=== PATIENT | male | born 1995 | race Caucasian/White ===

== ENCOUNTER 2023-01-27 11:44 | Emergency (ER) | payer OTHER ==
[~2023-01-27] VITALS: Ht 165.1 cm; Wt 81.6 kg
[2023-01-27 11:52] VITALS: BP 117/62
--- NOTE | 2023-01-27 14:00 | NUR ---
patient called no answer
--- NOTE | 2023-01-27 14:39 | NUR ---
PT CALLED FOR IN LOBBY. NO ANSWER
--- NOTE | 2023-01-27 15:00 | NUR ---
LWBS PER DR GILLILAND
--- NOTE | 2023-01-27 15:24 | NUR ---
1524 PT WAS CALLED FOR AGAIN. NO ANSWER
== END 2023-01-27 15:00 | disposition left against medical advice (07) ==
LOC: MED 11:44
DX: R53.1 Weakness (principal); R42 Dizziness and giddiness; Z53.21 Procedure and treatment not carried out due to patient leaving prior to being seen by health care provider
CPT/HCPCS: 99281

== ENCOUNTER 2023-02-24 13:02 | Emergency (ER) | payer OTHER ==
[~2023-02-24] VITALS: Ht 167.6 cm; Wt 81.6 kg
[2023-02-24 13:28] VITALS: BP 119/84; PULSE 86; RESP 18; TEMP 98; O2SAT 98
== END 2023-02-24 14:06 | disposition left against medical advice (07) ==
LOC: MED 13:02
DX: R07.89 Other chest pain (principal); R03.0 Elevated blood-pressure reading, without diagnosis of hypertension
CPT/HCPCS: 99281

== ENCOUNTER 2023-09-05 11:32 | Emergency (ER) | payer OTHER ==
[~2023-09-05] VITALS: Ht 167.6 cm; Wt 81.6 kg
[2023-09-05 11:45] VITALS: BP 118/75; PULSE 87; RESP 18; TEMP 98; O2SAT 98
[2023-09-05] MEDS ORDERED: cefTRIAXone 500 MG in LIDOCAINE MPF 1% 1 ML IM ONE (12:25)
[2023-09-05] MEDS ORDERED: AMOX500C25 PO ×2 (12:28→12:47)
[2023-09-05] MEDS ORDERED: IBUP-2213 PO ×2 (12:28→12:47)
[2023-09-05] MEDS ORDERED: cefTRIAXone 500 MG VIAL ONE (12:32)
[2023-09-05] MEDS ORDERED: LIDOCAINE MPF 1% 5 ML ONE (12:33)
== END 2023-09-05 12:48 | disposition home or self-care (01) ==
LOC: MED 11:32
DX: K08.89 Other specified disorders of teeth and supporting structures (principal); Z79.1 Long term (current) use of non-steroidal anti-inflammatories (NSAID); Z79.2 Long term (current) use of antibiotics
CPT/HCPCS: 96372; 99283; J0696; J2001

== ENCOUNTER 2023-09-11 16:32 | Emergency (ER) | payer OTHER ==
[~2023-09-11 16:32] MED LIST: AMOX500C25 PO; IBUP-2213 PO
== END 2023-09-11 17:18 | disposition left against medical advice (07) ==
LOC: MED 16:32
DX: K08.89 Other specified disorders of teeth and supporting structures (principal); Z53.21 Procedure and treatment not carried out due to patient leaving prior to being seen by health care provider

== ENCOUNTER 2023-09-24 17:07 | Emergency (ER) | payer OTHER ==
[~2023-09-24] VITALS: Ht 165.1 cm; Wt 83.9 kg
[2023-09-24 17:17] VITALS: BP 126/77; PULSE 82; RESP 16; TEMP 97.5; O2SAT 96
[2023-09-24] MEDS ORDERED: IBUP-2213 PO (17:33)
[2023-09-24] MEDS ORDERED: AMOX500C25 PO (17:33)
[2023-09-24] MEDS ORDERED: BENZ7GEL5 MM (17:33)
[2023-09-24 17:39] VITALS: BP 126/77; PULSE 82; RESP 16; TEMP 97.5; O2SAT 96
== END 2023-09-24 17:37 | disposition home or self-care (01) ==
LOC: MED 17:07
DX: K08.89 Other specified disorders of teeth and supporting structures (principal); Z79.899 Other long term (current) drug therapy
CPT/HCPCS: 99283

== ENCOUNTER 2023-10-06 13:22 | Emergency (ER) | payer OTHER ==
[~2023-10-06] VITALS: Ht 165.1 cm; Wt 81.6 kg
[~2023-10-06 13:22] MED LIST changes: +BENZ7GEL5 MM
[2023-10-06 13:34] VITALS: BP 114/74; PULSE 82; RESP 18; O2SAT 99
== END 2023-10-06 13:53 | disposition left against medical advice (07) ==
LOC: MED 13:22
DX: K08.89 Other specified disorders of teeth and supporting structures (principal); Z53.21 Procedure and treatment not carried out due to patient leaving prior to being seen by health care provider
CPT/HCPCS: 99281

== ENCOUNTER 2023-10-22 17:16 | Emergency (ER) | payer OTHER ==
[~2023-10-22] VITALS: Ht 165.1 cm; Wt 87.2 kg
[2023-10-22 17:29] VITALS: BP 117/78; PULSE 77; RESP 17; TEMP 97.9; O2SAT 95
[2023-10-22] MEDS ORDERED: HYDR28CR38 TP (18:23)
[2023-10-22] MEDS ORDERED: CEPH-588 PO (18:23)
[2023-10-22] MEDS ORDERED: BENZ20GE11 MM (18:23)
[2023-10-24] MEDS ORDERED: FAMO-92 PO (16:14)
[2023-10-24] MEDS ORDERED: CLIN300C2 PO (16:14)
== END 2023-10-22 18:32 | disposition home or self-care (01) ==
LOC: MED 17:16
DX: L25.9 Unspecified contact dermatitis, unspecified cause (principal); K08.89 Other specified disorders of teeth and supporting structures; Z79.899 Other long term (current) drug therapy
CPT/HCPCS: 99283

== ENCOUNTER 2023-12-03 15:39 | Emergency (ER) | payer OTHER ==
[~2023-12-03] VITALS: Ht 165.1 cm; Wt 83.9 kg
[~2023-12-03 15:39] MED LIST changes: +BENZ20GE11 MM; +CEPH-588 PO; +CLIN300C2 PO; +FAMO-92 PO; +HYDR28CR38 TP
[2023-12-03 15:57] VITALS: BP 106/73; PULSE 81; RESP 16; TEMP 98.2; O2SAT 97
[2023-12-03] MEDS ORDERED: PENI500T20 PO (16:25)
[2023-12-03] MEDS ORDERED: CHLO473S62 PO (16:25)
[2023-12-03 16:52] VITALS: BP 106/73; PULSE 81; RESP 16; TEMP 98.2; O2SAT 97
== END 2023-12-03 16:52 | disposition home or self-care (01) ==
LOC: MED 15:39
DX: K08.89 Other specified disorders of teeth and supporting structures (principal); K21.9 Gastro-esophageal reflux disease without esophagitis; Z79.899 Other long term (current) drug therapy
CPT/HCPCS: 99283

== ENCOUNTER 2024-03-25 11:26 | Emergency (ER) | payer OTHER ==
[~2024-03-25] VITALS: Ht 165.1 cm; Wt 79.4 kg
[~2024-03-25 11:26] MED LIST changes: +CHLO473S62 PO; +PENI500T20 PO
[2024-03-25 11:47] VITALS: BP 114/71; PULSE 78; RESP 16; TEMP 97.8; O2SAT 98
[2024-03-25] MEDS ORDERED: CLIN150C1 PO (12:33)
[2024-03-25] MEDS ORDERED: IBUP-1842 PO (12:33)
== END 2024-03-25 12:40 | disposition home or self-care (01) ==
LOC: MED 11:26
DX: K08.89 Other specified disorders of teeth and supporting structures (principal); K21.9 Gastro-esophageal reflux disease without esophagitis; Z79.899 Other long term (current) drug therapy
CPT/HCPCS: 99283

== ENCOUNTER 2024-04-07 13:36 | Emergency (ER) | payer OTHER ==
[~2024-04-07 13:36] MED LIST changes: +CLIN150C1 PO; +IBUP-1842 PO
== END 2024-04-07 14:09 | disposition left against medical advice (07) ==
LOC: MED 13:36
DX: R21 Rash and other nonspecific skin eruption (principal); Z53.21 Procedure and treatment not carried out due to patient leaving prior to being seen by health care provider

== ENCOUNTER 2024-04-11 19:09 | Emergency (ER) | payer OTHER ==
[~2024-04-11] VITALS: Ht 165.1 cm; Wt 81.6 kg
[2024-04-11 20:04] VITALS: BP 134/78; PULSE 88; RESP 16; TEMP 97.2; O2SAT 99
[2024-04-11] MEDS ORDERED: LOTRC TP (20:43)
[2024-04-11] MEDS ORDERED: CEPH-588 PO (20:43)
== END 2024-04-11 21:17 | disposition home or self-care (01) ==
LOC: MED 19:09
DX: N47.6 Balanoposthitis (principal); R21 Rash and other nonspecific skin eruption; K21.9 Gastro-esophageal reflux disease without esophagitis; Z79.899 Other long term (current) drug therapy
CPT/HCPCS: 99283

== ENCOUNTER 2024-05-22 11:19 | Emergency (ER) | payer OTHER ==
[~2024-05-22 11:19] MED LIST changes: +LOTRC TP
== END 2024-05-22 12:05 | disposition left against medical advice (07) ==
LOC: MED 11:19
DX: R21 Rash and other nonspecific skin eruption (principal); R42 Dizziness and giddiness; R10.9 Unspecified abdominal pain; Z53.21 Procedure and treatment not carried out due to patient leaving prior to being seen by health care provider

== ENCOUNTER 2024-06-14 09:17 | Emergency (ER) | payer OTHER ==
[~2024-06-14] VITALS: Ht 165.1 cm; Wt 77.1 kg
[2024-06-14 09:19] VITALS: BP 118/77; PULSE 68; RESP 16; TEMP 97; O2SAT 97
== END 2024-06-14 10:50 | disposition left against medical advice (07) ==
LOC: MED 09:17
DX: R21 Rash and other nonspecific skin eruption (principal); L29.9 Pruritus, unspecified; Z53.21 Procedure and treatment not carried out due to patient leaving prior to being seen by health care provider